=== PATIENT | female | born 1965 | race Caucasian/White ===

== ENCOUNTER 2021-04-02 07:14 | Day surgery (SDC) | payer OTHER ==
[~2021-04-02] VITALS: Ht 157.5 cm; Wt 58.5 kg
[~2021-04-02 07:14] MED LIST: BUSPIRONE HCL10 MG PO; CALCIUM500 MG PO; NORCO 5-325 TA1 EACH PO; TRAZODONE HCL100 MG PO; VITAMIN D325 MC2 PO
[2021-04-02] MEDS ORDERED: FISH OIL + D31 EACH PO (07:31)
[2021-04-02] MEDS ORDERED: MULTI-VITAMIN1 EACH PO (07:31)
--- NOTE | 2021-04-02 09:09 | NUR ---
04/02/21 0909 Adelaida Longoria 0905 PATIENT ARRIVES TO PACU RESTING WITH EYES CLOSED. OPENS EYES TO VERBAL STIMULI, BACK TO SLEEP WHEN NOT STIMULATED. RESP EVEN AND UNLABORED, NC OFF ON ARRIVAL TO PACU. SATS >98% ON ROOM AIR.
--- NOTE | 2021-04-03 19:00 | OR ---
[facility] [address], [place] [address] Signed DATE OF OPERATION: 04/02/2021 SURGEON: Gillian Escoto MD PREOPERATIVE DIAGNOSES: 1. External hemorrhoid in 2010 at age 45. 2. Minimal right-sided diverticulosis. POSTOPERATIVE DIAGNOSES: 1. Moderate internal and external hemorrhoids. 2. Minimal right and left-sided diverticulosis. PROCEDURE: Colonoscopy biopsy. ESTIMATED BLOOD LOSS: None. INDICATIONS: Pili is a 56-year-old female, who was asked to see me for a followup screening colonoscopy. She underwent a colonoscopy in 2010 at the age of 45 for rectal bleeding. She has a dominant external hemorrhoid at that time as well as today. She had done well with the Versed and fentanyl. She now follows up 10 years later for repeat screening colonoscopy. She has no lower GI complaints. There is no family history of colon cancer or polyps. She told me about a year headed for [place] to be closer to their children and grand children. She recalls colonoscopy quite well. There is risk including, but not limited to gas bloating, crampy abdominal pain, bleeding, perforation requiring surgery, and missed diagnosis. We also discussed the need for the IV conscious sedation. She had expressed understanding and wished to proceed. PROCEDURE NOTE: Pili was taken into our endoscopy suite and placed in the left lateral decubitus position. She was given a total of 7 mg of Versed and 150 mcg of fentanyl to cover the case. A digital rectal exam was performed and again, she has a dominant external hemorrhoid with an internal component. She has good sphincter tone. The adult colonoscope was introduced and advanced under direct visualization of the camera. Pili is slight of build at 5 foot 2 inches tall, 129 pounds with a body mass index of 23. Consequently her sigmoid colon is narrow in diameter. It took a few minutes to get the adult colonoscope up through this area. It took extra sedation abdominal compression in order to advance the scope. I think sedation actually turned out to be Electronically Signed By: GILLIAN ESCOTO MD 04/03/21 1900 PATIENT NAME: PILI SHAVER MINA OPERATIVE REPORT DATE OF : 61 REPORT #: [id number] PHYSICIAN: GILLIAN ESCOTO MD PCP: TAVO CAMPBELL PAC REPORT IS CONFIDENTIAL AND NOT TO BE RELEASED WITHOUT AUTHORIZATION [facility] [address], [place] [address] Signed more important in the compression. After that, the scope passed nicely around into the cecum itself. Her prep was quite good. We could easily see the appendiceal orifice and the ileocecal valve. The scope was then slowly withdrawn. She has a few diverticula in the proximal right colon. Again, she has a few diverticula over in the left colon. No polyps. The rectum was unremarkable. Upon retroflexion of the scope, she does have minimal to moderate internal hemorrhoid columns as well. After this, the gas was suctioned out and the colonoscope removed. Overall, Pili tolerated the procedure well. RECOMMENDATIONS: Pili can return in 10 years for repeat screening colonoscopy. If her hemorrhoid became an issue, it could certainly be excised both the internal external component. Gillian Escoto MD ALB/MODL /[id number] cc: Dr. Nanda Escoto MD Copies: GILLIAN ESCOTO MD ~ Electronically Signed By: GILLIAN ESCOTO MD 04/03/21 1900 PATIENT NAME: PILI SHAVER MINA OPERATIVE REPORT DATE OF : 61 REPORT #: [id number] PHYSICIAN: GILLIAN ESCOTO MD PCP: TAVO CAMPBELL PAC REPORT IS CONFIDENTIAL AND NOT TO BE RELEASED WITHOUT AUTHORIZATION
== END 2021-04-02 09:55 | disposition home or self-care (01) ==
LOC: OPS 07:14 → DS 07:14 → OPS 07:30 → DS 11:00
PROVIDERS: ATTEND Colon & Rectal Surgery
PROC: 0DJD8ZZ Inspection of Lower Intestinal Tract, Via Natural or Artificial Opening Endoscopic (ICD-10-PCS; principal; 2021-04-02 07:30)
DX: K64.4 Residual hemorrhoidal skin tags (principal); K57.30 Diverticulosis of large intestine without perforation or abscess without bleeding; K64.8 Other hemorrhoids; F12.90 Cannabis use, unspecified, uncomplicated; Z87.891 Personal history of nicotine dependence
CPT/HCPCS: 99153; G0500; J2250; J3010; J7121